=== PATIENT | male | born 1970 | race Caucasian/White ===

== ENCOUNTER 2017-03-29 03:50 | Emergency (ER) | payer SELFPAY | END 2017-03-29 06:15 | disposition home or self-care (01) | LOC: ER1 03:50 | DX: H10.32 Unspecified acute conjunctivitis, left eye (principal); H11.422 Conjunctival edema, left eye; I10 Essential (primary) hypertension; E03.9 Hypothyroidism, unspecified; Z79.891 Long term (current) use of opiate analgesic; Z79.899 Other long term (current) drug therapy | CPT/HCPCS: 99283 ==

== ENCOUNTER → 2020-12-04 | Outpatient (CLI) | payer OTHER ==
[~2020-12-04] MED LIST: DOXYCYCLINE HY100 MG PO; IBUPROFEN600 MG PO; NORCO 7.5-3251 EACH PO; NORVASC10 MG PO; PRINIVIL20 MG PO; SYMBICORT 160-1 INHA INH; SYNTHROID200 MCG PO; ZOFRAN ODT 4 MG4 MG PO
== END | disposition home or self-care (01) ==
LOC: US 09:13
DX: R59.1 Generalized enlarged lymph nodes (principal)

== ENCOUNTER → 2021-02-26 | Outpatient (CLI) | payer OTHER | LOC: KOH-I 02-22 14:00 | DX: R59.0 Localized enlarged lymph nodes (principal) | CPT/HCPCS: 76536 ==